=== PATIENT | female | born 1945 | race Caucasian/White ===

== ENCOUNTER → 2024-02-27 | Outpatient (CLI) | payer MEDICARE, SELFPAY ==
[2024-02-27 12:24] LABS: Absolute Lymphocyte Count 1.66 X10^3/uL (0.83-4.51); Basophil# 0.06 X10^3/uL; Basophil% 1.4 % (0-1); Eosinophil# 0.08 X10^3/uL; Eosinophils% 1.9 % (0-5); Hematocrit 42.8 % (37-47); Lymphocyte # 1.66 X10^3/ul (0.83-4.51); Lymphocyte % 39.1 % (19-41); Mean Corp Hgb Conc 32.7 g/dL (32-36); Mean Corpuscular Hgb 29.5 pg (27.0-32.0); Mean Corpuscular Volume 90.1 fL (81-99); Monocyte# 0.42 X10^3/uL; Monocyte% 9.9 % (0-10); NRBC Flagged by Analyzer 0 % (0-5); Neutrophil # 2.02 X10^3/uL (2.7-7.7); Neutrophil % 47.5 % (47-70); Platelet Count 174 K/mm3 (150-450); RBC Distribution Width SD 39.7 fl (35.1-43.9); Red Blood Count 4.75 M/mm3 (4.2-5.4); White Blood Count 4.3 K/mm3 (4.4-11.0)
[2024-02-27 12:46] LABS: BNP,B-Type NATRIURETIC PEPTIDE 46.2 pg/mL (0-100)
[2024-02-27 12:51] LABS: Vitamin D,25 Hydroxy 38.3 ng/mL
[2024-02-27 13:37] LABS: ALB/GLOB Ratio 1.1 RATIO (0.9-2.4); AST(SGOT) 18 U/L (15-37); Alanine Aminotransfer ALT/SGPT 17 U/L (13-56); Albumin, Serum 3.7 g/dL (3.2-5.0); Alkaline Phosphatase 151 U/L (45-117); Anion Gap 6 (5-15); BUN 17 mg/dL (7-18); BUN/Creat Ratio 23.5 RATIO (10-20); Calcium,Total 9.5 mg/dL (8.5-10.1); Chloride 108 mmol/L (98-107); Cholesterol 139 mg/dL (200); Creatinine, Serum 0.72 mg/dL (0.55-1.02); EST Glomerular Filtration Rate 82 mL/min (>60); Est Glom Filt Rate - Afr Amer 99 mL/min (>60); Globulin 3.3 g/dL (2.2-4.2); Glucose 119 mg/dL (74-106); High Density Lipoprotein 67 mg/dL; Potassium 4.1 mmol/L (3.5-5.1); Sodium Level 141 mmol/L (136-145); Triglycerides 77 mg/dL; Very Low Density Lipoprotein 15 mg/dL (5-40)
== END | disposition home or self-care (01) ==
PROVIDERS: PCP Internal Medicine; Referring Provider Internal Medicine; Visit Provider Internal Medicine
DX: I25.10 Atherosclerotic heart disease of native coronary artery without angina pectoris (principal); R06.02 Shortness of breath; E55.9 Vitamin D deficiency, unspecified; I10 Essential (primary) hypertension
CPT/HCPCS: 36415; 80053; 80061; 82306; 83880; 84443; 85025

== ENCOUNTER → 2024-04-16 | Outpatient (CLI) | payer MEDICARE, SELFPAY ==
--- NOTE | 2024-04-16 13:37 | VDLE_ITS ---
Reason For Study: Swelling BLE RIGHT LEFT GSV is normal. GSV is normal. CFV is compressible, spontaneous, phasic, CFV is compressible, spontaneous, phasic, competent and demonstrates normal competent, and demonstrates normal augmentation. augmentation. FV is compressible, spontaneous, phasic, FV is compressible, spontaneous, phasic, competent and demonstrates normal competent and demonstrates normal augmentation. augmentation. POP V is compressible, spontaneous, phasic, POP V is compressible, spontaneous, phasic, competent and demonstrates normal competent and demonstrates normal augmentation. augmentation. T/P Trunk is compressible. T/P Trunk is compressible. PTV is compressible. PTV is compressible. RT PerV is compressible. LT PerV is compressible. Procedure This is a venous duplex using B-mode, color flow and spectral Doppler. Exam performed in department. A preliminary report was called and/or faxed to Dr. Mauricio. VL/Venous Duplex US - Frandy Extrem Interpretation Summary Deep veins of the bilateral lower extremities are patent and compressible segme ntally. There is no evidence of bilateral lower extremity deep vein thrombosis. The bilateral great saphenous veins appear patent and compressible segmentally. Ordering Physician: Cristopher Mauricio Referring Physician: Martha Loyola Performed By: Margarita Crowe, ALOK, RVT
== END | disposition home or self-care (01) ==
PROVIDERS: PCP Internal Medicine; Referring Provider Internal Medicine Cardiovascular Disease; Visit Provider Internal Medicine Cardiovascular Disease
DX: R60.0 Localized edema (principal)
CPT/HCPCS: 93970

== ENCOUNTER → 2024-09-24 | Outpatient (CLI) | payer MEDICARE, SELFPAY ==
[2024-09-24 12:56] LABS: AST(SGOT) 22 U/L (15-37); Alanine Aminotransfer ALT/SGPT 28 U/L (13-56); Albumin, Serum 3.8 g/dL (3.2-5.0); Alkaline Phosphatase 159 U/L (45-117); Bilirubin, Direct 0.24 mg/dL (0.00-0.30); Cholesterol 137 mg/dL (200); Globulin 3.5 g/dL (2.2-4.2); High Density Lipoprotein 70 mg/dL; Protein, Total 7.3 g/dL (6.4-8.2); Triglycerides 90 mg/dL; Very Low Density Lipoprotein 18 mg/dL (5-40)
== END | disposition home or self-care (01) ==
PROVIDERS: PCP Internal Medicine; Referring Provider Physician Assistant Medical; Visit Provider Physician Assistant Medical
DX: E78.2 Mixed hyperlipidemia (principal)
CPT/HCPCS: 36415; 80061; 80076

== ENCOUNTER → 2024-10-19 | Outpatient (CLI) | payer MEDICARE, SELFPAY ==
--- NOTE | 2024-10-19 14:57 | BD_ITS ---
PROCEDURE: DEXA BONE DENSITY STUDY REASON FOR EXAM: F, age 79 y/o . Postmenopausal. TECHNIQUE: DEXA scan of the lumbar spine and both hips. COMPARISON: None. FINDINGS: Lumbar Spine (L1-L4): g/cm2 (0.701)/T-score (-3.6)/Z-score (-0.8) findings are suggestive of osteoporosis with a high fracture risk. Left Femur Total: g/cm2 (0.814)/T-score (-1.1)/Z-score (1.1) Left Femoral Neck: g/cm2 (0.533)/T-score (-2.8)/Z-score (-0.5) Right Femur Total: g/cm2 (0.811)/T-score (-1.1)/Z-score (1.1) Right Femoral Neck: g/cm2 (0.602)/T-score (-2.2)/Z-score (0.2) BD/Dexa Bone Density Study IMPRESSION: The patient is considered osteoporotic as outlined below according to World Hea [employer] Organization (WHO) criteria with a high fracture risk. Reading Location: [facility]
--- NOTE | 2024-10-19 15:30 | BI_ITS ---
PROCEDURE: SCRN MAMM (CAD)W/PADMINI BILAT REASON FOR EXAM: F, Age 79 y/o , presents for annual screening mammogram. Personal history of right breast cancer status post lumpectomy and radiation in 2008 with recurrence 5 years later. TECHNIQUE: Bilateral screening digital breast tomosynthesis with 2D and 3D images. Computer aided detection. COMPARISON: 07/01/2022 FINDINGS: There are scattered areas of fibroglandular density. There is a focal asymmetry in the lower inner right breast at posterior depth. There are postsurgical changes seen in the upper-outer right breast at posterior depth. No suspicious masses, areas of developing architectural distortion, or suspicious calcifications in the left breast. BI/SCRN MAMM (CAD)W/PADMINI BILAT IMPRESSION: There is a focal asymmetry in the lower-inner right breast at posterior depth r equires further evaluation. Recommend diagnostic mammogram and ultrasound of the right breast. BI-RADS 0: INCOMPLETE - NEED ADDITIONAL IMAGING EVALUATION. Follow-up code: Additional Views obtained/call backs The patient will be notified of the results by letter. Reading Location: [id number]
== END | disposition home or self-care (01) ==
LOC: OPBD 14:50
PROVIDERS: PCP Internal Medicine; Referring Provider Internal Medicine; Visit Provider Internal Medicine
DX: Z12.31 Encounter for screening mammogram for malignant neoplasm of breast (principal); Z78.0 Asymptomatic menopausal state
CPT/HCPCS: 77063; 77067; 77080

== ENCOUNTER → 2024-10-26 | Outpatient (CLI) | payer MEDICARE, SELFPAY ==
--- NOTE | 2024-10-26 14:30 | BI_ITS ---
PROCEDURE: DIAG MAMM W/CAD, UNILAT REASON FOR EXAM: ABNORMAL MAMMOGRAM TECHNIQUE: Compression spot views of the right breast in the mediolateral oblique and craniocaudad projections as well as 3D images computer aided detection. COMPARISON: Prior exam(s) dating back to October 19, 2024.. FINDINGS: There are scattered areas of fibroglandular density. Persistent 1.8 cm nodule in the central medial aspect of the right breast. Correlation with ultrasound is recommended. BI/DIAG MAMM W/CAD, UNILAT IMPRESSION: BI-RADS 0: INCOMPLETE - NEED ADDITIONAL IMAGING EVALUATION. Follow-up code: Ultrasound Recommended Reading Location: [place] [address]
--- NOTE | 2024-10-26 15:30 | US_ITS ---
PROCEDURE: BREAST LIMITED UNILATERAL REASON FOR EXAM: ABNORMAL MAMMOGRAM 79-year-old female presents for follow-up of the right breast findings seen on the mammogram of 10/19/2024. Personal history of right breast cancer status post lumpectomy with radiation in 2008 and recurrence 5 years later. TECHNIQUE: Targeted right breast ultrasound. COMPARISON: Same-day right breast diagnostic mammogram and mammograms 05/31/2022, 10/17/2020 FINDINGS: RIGHT: Right breast ultrasound was targeted to the lower-inner quadrant. Ultrasound performed of the right breast demonstrates an irregular hypoechoic mass with posterior shadowing at 5 o'clock 3 cm from the nipple measuring 1.1 x 1.1 x 1.0 cm. There is increased vascularity at the margins of the mass. This finding is an appropriate correlate for the mammographic finding. US/Breast Limited Unilateral IMPRESSION: Irregular right breast mass at 5 o'clock 3 cm from the nipple is suspicious. R ecommend tissue sampling with ultrasound-guided core needle biopsy for further evaluation. BI-RADS 4: SUSPICIOUS ABNORMALITY. Follow-up code: Biopsy Recommended Reading Location: [id number]
== END | disposition home or self-care (01) ==
PROVIDERS: PCP Internal Medicine; Referring Provider Internal Medicine; Visit Provider Internal Medicine
DX: R92.8 Other abnormal and inconclusive findings on diagnostic imaging of breast (principal)
CPT/HCPCS: 76642; 77061; 77065; G0279

== ENCOUNTER → 2024-10-29 | Outpatient (CLI) | payer MEDICARE, SELFPAY ==
--- NOTE | 2024-10-29 09:00 | BREAST_PTH ---
PATIENT: WILLIAM MCCORD LOC: [facility] U#:[id number] AGE/SX: 79/F ROOM: RE10/29/[address]: Dr. Marcy Melton MD : 1945 BED: DIS: 10/29/2024 SPEC #: [id number] RECD: 10/29/24 10:58 STATUS: CHYNA REQ #: [id number] HORTENSIA: 10/29/24 09:[address]: Marcy Melton DEPT: SURGICAL PATHOLOGY RECD BY: Ranjit Wesley ENTERED: 10/29/24 10:59 SP TYPE: BREAST OTHR DR: Dr. 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 * Ki67 proliferative index: 20% Note: The tumor cells are positive for E-cadherin confirming the ductal origin. MICROSCOPIC DESCRIPTION Slides are reviewed. These tests were developed and their performance characteristics determined by [facility]. They may not have been cleared or approved by the U.S. Food and Drug Administration. The FDA has determined that such clearance or approval is not necessary. The above immunohistochemical/dualISH markers are ordered and reviewed by the Pathologist. GROSS DESCRIPTION Received in fixative is one container labeled with the patient's name and designated right breast mass. The specimen consists of multiple cores of red soft tissue measuring in aggregate 1.3 x 0.6 x 0.3 cm. Cold ischemia time is 1 minute. Formalin fixation time is greater than 48 hours. TE1 eh 10/29/24 CPT:[id number] ADDENDUM ADDENDUM ADDENDUM ADDENDUM 11/03/2024 11:13 ADDENDUM 11/03/2024 11:13 ADDENDUM 11/03/2024 11:13 ADDENDUM 11/03/2024 11:13 ADDENDUM 11/03/2024 11:13 ADDENDUM 11/15/2024 08:25 This addendum is to report the tumor grade: Grade 2 (tubule 3, nuclear 2, mitosis 1). This addendum is added to incorporate an outside pathology consultation report. The case was examined at [facility] by Dr. Ballard (#[id number]) and the following diagnosis was rendered. A. Right breast mass at 5:00, 3 cm from nipple: HER2 FISH: Negative HER2 FISH REPORT: HER2 SCORE: NEGATIVE HER2/CEP17 RATIO: 1.0 HER2 COPY NUMBER/CELL: 2.4 Please see complete above mentioned consultation report in EMR
== END | disposition home or self-care (01) ==
LOC: LABSPEC 10:23
PROVIDERS: PCP Internal Medicine; Referring Provider Surgery; Visit Provider Surgery
DX: N63.10 Unspecified lump in the right breast, unspecified quadrant (principal)
CPT/HCPCS: 88305; 88341; 88342

== ENCOUNTER 2024-11-17 12:04 | Day surgery (SDC) | payer MEDICARE, SELFPAY ==
--- NOTE | 2024-11-10 11:03 | PAT.ANESEVAL ---
Pre-Assessment Diagnosis/Proposed Procedure Planned Operative Procedure(s): U/S GUIDED WIRE LOCALIZATION RIGHT LUMPECTOMY WITH SENTINEL LYMPH NODE BX BLUE DYE POSS AXILLARY DISSECTION Anesthesia History Anesthesia History - isotope technologist: Anesthesia History - isotope technologist Hx Hospitalization No 11/09/24 11:21 Any Problems With Anesthesia No 11/09/24 11:21 Cholinesterase deficiency No 11/09/24 11:21 You/Your Family Experience No 11/09/24 11:21 fever (hyperthermia) with Relationship Recent Exposure to Contagious Disease Does patient have nerve No 11/09/24 11:21 stimulator Patient instructed to have device shut off --Does patient have Pacemaker or ICD? When Was Last Pacemaker Check QUESTION #4 FULL TEXT: You/Your Family Experience fever (hyperthermia) with Anesthesia Last Oral Intake Last Oral intake: Last Oral Intake NPO since Meds taken in AM with sips of water? Meds patient instructed to take am of surgery PONV PONV - isotope technologist: PONV - isotope technologist Female Yes 11/09/24 11:21 HX of Motion Sickness Yes 11/09/24 11:21 HX of N/V After Surgery No 11/09/24 11:21 Non-Smoker Yes 11/09/24 11:21 Duration of Surgery greater Yes 11/09/24 11:21 than 60 minutes Number of Risk Factors 4 11/09/24 11:21 PONV Score Severe Risk 11/09/24 11:21 Height & Weight Height & Weight: Anesthesia: Height & Weight Height 5 ft 11/08/24 09:46 Respiratory Assessment Respiratory Assessment - isotope technologist: Respiratory Tract Infection Hx - isotope technologist Hx Respiratory Tract Infection No 11/09/24 11:21 STOP Sleep Apnea STOP Sleep Apnea - isotope technologist: STOP Sleep Apnea - isotope technologist Hx Hypertension Yes: CONTROLLED WITH MED 11/09/24 11:21 Hx Sleep Apnea Yes 11/09/24 11:21 CPAP Yes: NONCOMPLIANT 11/09/24 11:21 BIPAP No 11/09/24 11:21 Do you snore loudly (louder than talking or can be heard Do you often feel tired/ fatigued/ sleepy during daytime? Has anyone observed you stop breathing during sleep? STOP Results Positive 11/09/24 11:21 QUESTION #5 FULL TEXT : Do you snore loudly (louder than talking or can be heard through closed doors)? 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 Specify any problems Hx of Preganancy in last 3 No 11/09/24 11:21 Months Nurse Filling Out Transfusion DSCHRIBER 11/09/24 11:21 & Questions: Date: 11/09/24 11/09/24 11:21 Time: 11:11/09/24 11:21 Patient unable to answer at this time (ie. confused, unrespo /Reproduction History /Reproductive History - isotope technologist: /Reproductive Hx- isotope technologist Hx Now No 11/09/24 11:21 Gestational Age (in weeks): EDC: Hx Hx Para Hx Section SAB No 11/09/24 11:21 [facility] Medical History (Updated 11/09/24 @ 11:37 by Mary Bettencourt) Wears glasses Post-menopausal Anxiety Ambulates with cane Arthritis Bladder disease High cholesterol Back pain History of diverticulitis Gastric reflux Non-smoker CPAP (continuous positive airway pressure) dependence Shortness of breath on exertion History of pain when walking History of edema History of stress test History of echocardiogram Cardiology follow-up encounter Breast cancer Mixed hyperlipidemia CAD (coronary artery disease) Factor V Leiden Chronic back pain Osteoarthritis Glaucoma Hypertension Home Medications ?Medication ?Instructions ?Recorded ?Last Taken ?Type cholecalciferol (vitamin D3) 10 10 mcg PO DAILY 08/19/23 Unknown History mcg (400 unit) capsule amlodipine 5 mg tablet 5 mg PO QDAY 02/24/24 Unknown History [id number]-[id number]- 250 mg-dha 90 1 cap PO DAILY 02/24/24 Unknown History mg-epa 160 xn-xjxd-fcve-zeax capsule (Ocuvite Adult 50 Plus) rosuvastatin 5 mg tablet 5 mg PO QHS 02/24/24 Unknown History dorzolamide 22.3 mg-timolol 6.8 1 drp ophthalmic (eye) BID 04/02/24 Unknown History mg/mL eye drops loratadine 10 mg tablet (Claritin) 10 mg PO DAILY PRN allergy symptoms 04/02/24 Unknown History vibegron 75 mg tablet (Gemtesa) 75 mg PO QDAY 08/31/24 Unknown History alendronate 70 mg tablet (Fosamax) 70 mg PO QWEEK #12 tabs 10/27/24 Unknown Rx aspirin 81 mg tablet,delayed 81 mg PO QDAY 10/29/24 Unknown History release (Adult Aspirin Regimen) omeprazole 40 mg capsule,delayed 40 mg PO DAILY PRN GERD 11/09/24 Unknown History release Allergy/AdvReac Type Severity Reaction Status Date / Time lisinopril Allergy Severe edema Verified 11/09/24 11:17 adhesive tape Allergy rash Verified 11/09/24 11:17 carrot Allergy rash Verified 11/09/24 11:17 green carrington Allergy Vomiting Verified 11/09/24 11:17 atorvastatin AdvReac Severe mylagia Verified 11/09/24 11:17 Family History Brother Alcoholism Daughter Factor V deficiency Mother Arthritis Hypertension Dementia Father Arthritis Heart disease Brother Atrial fibrillation Surgical History (Updated 11/09/24 @ 11:37 by Mary Bettencourt) Hx of colonoscopy Hx of right cataract extraction Hx of left cataract extraction History of lumbar laminectomy History of cardiac catheterization H/O lumpectomy S/P tonsillectomy H/O heart artery stent H/O: hysterectomy Social History adopted: No household members: none 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 Sinus rhythm. First-degree AV block. Left anterior fascicular block. Nonspecific T wave abnormality. Consult pertinent findings: Cardiology 09/24/2024. Hypertension. Controlled on current medications. No adjustments coronary artery disease. Stable. Stress test from 2023. Negative. Recommendation Anesthesia Recommendation Anesthesia recommendation: OPTIMIZED for anesthesia
[2024-11-17] VITALS (9 sets, daily range): BP systolic 138–159; BP diastolic 64–86; PULSE 61–66; RESP 14–18; TEMP 36.4–37.2; O2SAT 93–98; BMI 40.0
--- NOTE | 2024-11-17 12:12 | NM_ITS ---
EXAM: [place] node imaging. CLINICAL HISTORY: Right breast cancer. COMPARISON: None TECHNIQUE: 579 uCi of Lymphoseek injected subdermally 1 cm above the nipple of the right breast. FINDINGS: 579 uCi of Lymphoseek injected subdermally 1 cm above the nipple of the right breast for sentinel node imaging. NM/Lymph Node Injection Only IMPRESSION: Successful injection. [place] node imaging. Reading [facility]
--- NOTE | 2024-11-17 12:33 | PRE.ANES_ITS ---
ASA Classification* ASA Classification ASA Classification: 2 Assessment & Plan Anesthesia* Anesthesia Assessment Anesthesia Assessment: Discussed sedation and/or anesthesia options, risks, benefits, and alternatives with patient/parents/legal guardian/POA. Questions invited. The patient/parents/legal guardian/POA seems to understand and agrees to proceed with anesthesia plan. Reviewed the physical assessment, medical history, allergy history and patient home medications list prior to surgery/procedure/anesthetic and documented any changes. Performed airway and anesthesia risk assessments. Anesthesia Type Anesthesia Type: General Anesthesia Focused Assessment* Airway Assessment Mouth opens: >3 cm Mallampati Score: II Focused Labs Anesthesia Preop lab: CBC WBC 4.3 K/mm3 (4.4-11.0) L 02/27/24 10:47 02/27/24 RBC 4.75 M/mm3 (4.2-5.4) 02/27/24 10:47 02/27/24 Hgb 14.0 g/dL (12.0-15.0) 02/27/24 10:47 02/27/24 Hct 42.8 % (37-47) 02/27/24 10:47 02/27/24 Plt Count 174 K/mm3 (150-450) 02/27/24 10:47 02/27/24 CHEMISTRY Potassium 4.1 mmol/L (3.5-5.1) 02/27/24 10:47 02/27/24 Sodium 141 mmol/L (136-145) 02/27/24 10:47 02/27/24 BUN 17 mg/dL (7-18) 02/27/24 10:47 02/27/24 Creatinine 0.72 mg/dL (0.55-1.02) 02/27/24 10:47 02/27/24 Glucose 119 mg/dL (74-106) H 02/27/24 10:47 02/27/24 TSH 1.90 uIU/mL (0.358-3.74) 02/27/24 10:47 COAG Pre-Assessment Diagnosis/Proposed Procedure Planned Operative Procedure(s): U/S GUIDED WIRE LOCALIZATION RIGHT LUMPECTOMY WITH SENTINEL LYMPH NODE BX BLUE DYE POSS AXILLARY DISSECTION Anesthesia History Anesthesia History - manager financial systems: Anesthesia History - manager financial systems Hx Hospitalization No 03/25/25 11:21 Any Problems With Anesthesia No 11/09/24 11:21 Cholinesterase deficiency No 11/09/24 11:21 You/Your Family Experience No 11/09/24 11:21 fever (hyperthermia) with Relationship Recent Exposure to Contagious Disease Does patient have nerve No 11/09/24 11:21 stimulator Patient instructed to have device shut off --Does patient have Pacemaker or ICD? When Was Last Pacemaker Check QUESTION #4 FULL TEXT: You/Your Family Experience fever (hyperthermia) with Anesthesia Last Oral Intake Last Oral intake: Last Oral Intake NPO since Meds taken in AM with sips of water? Meds patient instructed to take am of surgery PONV PONV - manager financial systems: PONV - manager financial systems Female Yes 11/09/24 11:21 HX of Motion Sickness Yes 11/09/24 11:21 HX of N/V After Surgery No 11/09/24 11:21 Non-Smoker Yes 11/09/24 11:21 Duration of Surgery greater Yes 11/09/24 11:21 than 60 minutes Number of Risk Factors 4 11/09/24 11:21 PONV Score Severe Risk 11/09/24 11:21 Height & Weight Height & Weight: Anesthesia: Height & Weight Height 5 ft 11/08/24 09:46 Respiratory Assessment Respiratory Assessment - manager financial systems: Respiratory Tract Infection Hx - manager financial systems Hx Respiratory Tract Infection No 11/09/24 11:21 STOP Sleep Apnea STOP Sleep Apnea - manager financial systems: STOP Sleep Apnea - manager financial systems Hx Hypertension Yes: CONTROLLED WITH MED 11/09/24 11:21 Hx Sleep Apnea Yes 11/09/24 11:21 CPAP Yes: NONCOMPLIANT 11/09/24 11:21 BIPAP No 11/09/24 11:21 Do you snore loudly (louder than talking or can be heard Do you often feel tired/ fatigued/ sleepy during daytime? Has anyone observed you stop breathing during sleep? STOP Results Positive 11/09/24 11:21 QUESTION #5 FULL TEXT : Do you snore loudly (louder than talking or can be heard through closed doors)? 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 Specify any problems Hx of Preganancy in last 3 No 11/09/24 11:21 Months Nurse Filling Out Transfusion DSCHRIBER 11/09/24 11:21 & Questions: Date: 11/09/24 11/09/24 11:21 Time: 11/09/24 11:21 Patient unable to answer at this time (ie. confused, unrespo /Reproduction History /Reproductive History - manager financial systems: /Reproductive Hx- manager financial systems Hx Now No 11/09/24 11:21 Gestational Age (in weeks): EDC: Hx Hx Para Hx Section SAB No 11/09/24 11:21 Active Medications Active Medications: Current Medications Generic Name Dose Route Start Last Admin Trade Name Freq PRN Reason Stop Dose Admin Cefazolin Sodium 2 gm/ N/A 20 mls @ 400 mls/hr 11/17/24 14:00 IV 11/17/24 14:02 PREOP ONE Sodium Chloride 1,000 mls @ 15 mls/hr 11/17/24 12:15 IV .Q48H MICHEL PFSH Medical History Wears glasses Post-menopausal Anxiety Ambulates with cane Arthritis Bladder disease High cholesterol Back pain History of diverticulitis Gastric reflux Non-smoker CPAP (continuous positive airway pressure) dependence Shortness of breath on exertion History of pain when walking History of edema History of stress test History of echocardiogram Cardiology follow-up encounter Breast cancer Mixed hyperlipidemia CAD (coronary artery disease) Factor V Leiden Chronic back pain Osteoarthritis Glaucoma Hypertension Home Medications ?Medication ?Instructions ?Recorded ?Last Taken ?Type cholecalciferol (vitamin D3) 10 10 mcg PO DAILY Unknown History mcg (400 unit) capsule amlodipine 5 mg tablet 5 mg PO QDAY 02/24/24 Unknow n History rrdlroda-dbu- 250 mg-dha 90 1 cap PO DAILY 02/23 Unknown History mg-epa 160 ro-cnvg-ucun-zeax capsule (Ocuvite Adult 50 Plus) rosuvastatin 5 mg tablet 5 mg PO QHS 02/24/24 Unknown History dorzolamide 22.3 mg-timolol 6.8 1 drp ophthalmic (eye) BID 04/02/24 Unknown History mg/mL eye drops loratadine 10 mg tablet (Claritin) 10 mg PO DAILY PRN allergy symptoms 04/02/24 Unknown History vibegron 75 mg tablet (Gemtesa) 75 mg PO QDAY 08/31/24 Unknown History alendronate 70 mg tablet (Fosamax) 70 mg PO QWEEK #12 tabs 10/27/24 Unknown Rx aspirin 81 mg tablet,delayed 81 mg PO QDAY 10/29/24 Un known History release (Adult Aspirin Regimen) omeprazole 40 mg capsule,delayed 40 mg PO DAILY PRN GE RD #90 caps 11/15/24 Unknown Rx release Allergy/AdvReac Type Severity Reaction Status Date / Time lisinopril Allergy Severe edema Verified 11/09/24 11:17 adhesive tape Allergy rash Verified 11/09/24 11:17 carrot Allergy rash Verified 11/09/24 11:17 green carrington Allergy Vomiting Verified 11/09/24 11:17 atorvastatin AdvReac Severe mylagia Verified 11/09/24 11:17 Family History Brother Alcoholism Daughter Factor V deficiency Mother Arthritis Hypertension Dementia Father Arthritis Heart disease Brother Atrial fibrillation Surgical History Hx of colonoscopy Hx of right cataract extraction Hx of left cataract extraction History of lumbar laminectomy History of cardiac catheterization H/O lumpectomy S/P tonsillectomy H/O heart artery stent H/O: hysterectomy Social History adopted: No household members: none 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
--- NOTE | 2024-11-17 12:36 | HP.PCM_ITS ---
History and Physical Date of Admission: 11/17/24 Date of Service: 11/08/24 MR#: [id number] Acct: [id number] Name: WILLIAM MCCORD Rep #: [id number] : 1945 Provider: Dr. Marcy Melton MD Age/Sex: 79/F Location: [facility] Status: Signed Intake Vital Signs 10/29/2508:08 11/08/2508:46 Height 5 ft 5 ft Weight: 206 lb 5 oz 204 lb BMI 40.3 39.8 BP 134/84 H 151/82 H Blood Pressure Location Lt brachial Rt brachial Position Sitting Sitting Respiration 17 18 Pulse 62 69 Pulse Source Monitor Monitor Temp 97.2 F L Temp Source Temporal Pulse Oximetry (%) 96 97 Oxygen Delivery Method room air room air Intake Visit Reasons: DISCUSS BREAST SURGERY Chief Complaint: discuss breast surgery Is patient in pain?: No Allergies lisinopril Allergy (Severe, Verified 10/29/24 09:10) edemaadhesive tape Allergy (Verified 10/29/24 09:10) rashcarrot Allergy (Verified 10/29/24 09:10) rashgreen carrington Allergy (Verified 10/29/24 09:10) Vomitingatorvastatin Adverse Reaction (Severe, Verified 10/29/24 09:10) mylagia Medications ?Medication ?Instructions ?Recorded ?Confirmed ?Type cholecalciferol (vitamin D3) 10 10 mcg PO DAILY 08/19/23 11/08/24 Histor y mcg (400 unit) capsule amlodipine 5 mg tablet 5 mg PO QDAY 02/24/24 11/08/24 History co soft ophthalmic (eye) 02/24/24 11/08/24 History dtmqusyt-rrs- 250 mg-dha 90 1 cap PO DAILY 02/24/24 11/08/24 History mg-epa 160 cu-asia-fclo-zeax capsule (Ocuvite Adult 50 Plus) rosuvastatin 5 mg tablet 5 mg PO QDAY 02/24/24 11/08/24 History CPAP machine #1 ea 03/15/24 11/08/24 Rx dorzolamide 22.3 mg-timolol 6.8 ophthalmic (eye) 04/02/24 11/08/24 History mg/mL eye drops loratadine 10 mg tablet (Claritin) 10 mg PO DAILY PRN 04/02/24 11/08/24 His tory omeprazole 40 mg capsule,delayed 40 mg PO DAILY #90 caps 08/05/24 5 Rx release vibegron 75 mg tablet (Gemtesa) 75 mg PO QDAY 08/31/24 11/08/24 History alendronate 70 mg tablet (Fosamax) 70 mg PO QWEEK #12 tabs 10/27/24 5 Rx aspirin 81 mg tablet,delayed 81 mg PO QDAY 10/29/24 11/08/24 History release (Adult Aspirin Regimen) Have you fallen in the past year?: No PFSH Medical History Breast cancer Dyspnea on exertion Osteoarthritis Chronic back pain CAD (coronary artery disease) GERD (gastroesophageal reflux disease) ISAURA (obstructive sleep apnea) Mixed hyperlipidemia Essential hypertension IBS (irritable bowel syndrome) Diverticulitis Bladder prolapse GI bleed Factor V Leiden Seasonal allergies Chaney esophagus Hyperlipemia Glaucoma Heart disease Hypertension Surgical History History of cardiac catheterization H/O lumpectomy S/P tonsillectomy H/O heart artery stent Cataract extraction status Previous back surgery H/O: hysterectomy Family History Brother AlcoholismDaughter Factor V deficiencyMother Arthritis Hypertension DementiaFather Arthritis Heart diseaseBrother Atrial fibrillation Social History adopted: No household members: none 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 occupational 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 To discuss surgical treatment. Patient previously had lumpectomies x 2 on the right did not have any radiation and only took antihormone pill for about 3 months due to nausea. ROS General General: Yes fatigue and breast cancer; No weight change, appetite, colon cancer or weakness HEENT HEENT: Yes eye surgery; No difficulty swallowing, eye injury, swollen glands or hoarseness Endo Endocrine: No thyroid disease, diabetes mellitus, thyroid cancer, Hair loss, heat intolerance or cold intolerance Skin Skin: Yes rash; No changing moles Breast Breast: Yes right breast lump, abnormal mammogram and abnormal US; No left breast lump, nipple discharge, breast pain or breast enlargement Musc Musculoskeletal: Yes back problems and arthritis; No rheumatoid arthritis, gout or joint pain Cardio Cardiovascular: Yes heart disease, high blood pressure and heart stent; No murmur, pacemaker, atrial fibrillation, heart attack, palpitations, shortness of breath with exertion or chest pain Psych Psychiatric: No depression, anxiety or hearing voices Resp Respiratory: Yes shortness of breath, Yes sleep apnea, Yes cough, No COPD, No asthma, No emphysema and No wheezing Gastro Gastrointestinal: Yes abdominal pain, No nausea or vomiting, No diarrhea, No constipation, No blood in stool, Yes acid reflux, No hemorrhoids, No ulcers, No gallbladder problem and No black,tarry stools Cm Hematologic: Yes blood thinners, Yes blood disorders, No bleeding, No anemia and No blood clots Additional Details: factor V leiden Neuro Neurologic: No numbness, No tingling Exam Const General: cooperative, healthy appearing and no acute distress [facility] Head: normal to inspection Chest Other: Breast inspection: Right breast slightly smaller than left, well-healed areolar incision Right breast: Biopsy site well-healed, mass at 5-6 o'clock abt 1.5 cm Resp Effort & Inspection: normal respiratory effort Cardio Rate: regular rate GI Inspection: non-distended Palpation: soft Skin General: no rashes or lesions noted Neuro General: patient oriented x3 Extrem General: no clubbing, cyanosis or edema Psych Affect: normal affect Assessment and Plan Assessment and Plan (1) Invasive ductal carcinoma of right breast: Status: Acute (2) History of ductal carcinoma in situ (DCIS) of right breast: Status: Acute Comment: s/p lumpectomies last in 2012, no radiation per pt, stopped antihormone pill after 3 months due to nausea Orders: Orders Lymph Node Injection Only 11/17/24 N63.10 - Unspecified lump in the right breast, unspecified quadrant, Z86.000 - Personal history of in-situ neoplasm of breast Plan I have given the patient options for initial surgical treatment. Options are the following: lumpectomy followed by radiation therapy vs. mastectomy vs. mastectomy followed by immediate reconstruction. I have described the procedures to the patient. I have described the advantages and disadvantages of the options, but I have told the patient that among the options, the survival rate for breast cancer is the same. Patient is currently not interested in mastectomy or reconstruction. And would be agreeable to radiation is aware that the number of sessions depends on final diagnosis and pathology grade and does take in account patient's age as well. I have told the patient that with all the surgeries that a sentinel lymph node biopsy is required. I have described the procedure of sentinel lymph node biopsy to the patient. I have told the patient that if the biopsy is positive for metastatic disease, then a full axillary lymph node dissection is required. I have told the patient that adjuvant chemotherapy will be required should the lymph nodes reveal metastatic disease. Also, a full lymph node dissection will increase the risk for lymphedema, especially if there are 4 or more lymph nodes positive for metastatic disease and radiation to the axilla is also required. Discussed with patient that likely due to her age I would not proceed with a full axillary lymph node dissection as she would not get the benefit. I have told the patient the risks of surgery, including but not limited to: infection, bleeding, scar tissue, seroma and persistent seroma, lymph leak, injury to any blood vessels, injury to any nerves (particularly the long thoracic, the thoracodorsal, and the second intercostal brachial and the resultant sequelae), lymphedema, cosmetic deformity, dysesthesias, wound infections, further surgery (especially if margins are not clear), complications of anesthesia, etc. the patient understands. Patient is agreeable to ultrasound-guided wire localization right lumpectomy, sentinel lymph node biopsy with Lymphoseek and blue dye. I have answered all the patient?s questions at this point to her satisfaction and she has no further questions. Marcy Melton M.D. Pager: [phone] [facility] [address] [place] [address], [address] [place] [address] Office: [phone] Coding Level of Care Code Off vis,est,level 4 Diagnoses Invasive ductal carcinoma of right breast C50.911 History of ductal carcinoma in situ (DCIS) of right breast Z86.000 Clinical Quality Measures Falls Risk Screening/Assistive Devices Have you fallen in the past year?: No 11/09/24 0912 <Electronically signed by Marcy Melton MD> Date Marcy Melton MD
[2024-11-17] MEDS: 0.9% Normal Saline (1000mL) 1,000 ML 15 ML IV (12:37)
[2024-11-17] MEDS: Cefazolin 2 GM in Syringe IV (13:51)
[2024-11-17] MEDS: 0.9% Normal Saline (Pres. free 10 ML Vial (14:00)
[2024-11-17] MEDS: Isosulfan Blue 1% 5 ML Vial (14:00)
--- NOTE | 2024-11-17 14:00 | LYMN_PTH ---
PATIENT: WILLIAM MCCORD LOC: [facility] U#:[id number] AGE/SX: 79/F ROOM: RE11/17/[address]: Dr. Marcy Melton MD : 1945 BED: DIS: 11/17/2024 SPEC #: [id number] RECD: 11/17/24 15:47 STATUS: CHYNA REFaina #: [id number] HORTENSIA: 11/17/24 14:[address]: Marcy Melton DEPT: SURGICAL PATHOLOGY RECD BY: Ranjit Wesley ENTERED: 11/17/24 15:47 SP TYPE: LYMPH NODE OTHR DR: Dr. Martha Loyola MD Tissues: A - LYMPH NODE BIOPSY Procedures: Frozen Section (charge) Immunohistochemical Stains Frozen Section Add'l ([facility]) Surgery Specimen Level IV IHC Stain ADDITIONAL HEADER OPERATION: Right breast lumpectomy, sentinel lymph node PRE-OP DIAGNOSIS: Invasive ductal carcinoma of right breast, history of ductal carcinoma in situ of right breast TISSUE SUBMITTED: A- Colton lymph node - right breast, B- Right breast mass *long stitch-lateral, short stitch-superior*, C- [place] lymph node - right breast #2, D- Colton lymph node - right breast #3 FROZEN SECTION DIAGNOSIS A. Right breast sentinel lymph node, biopsy: Fibrofatty tissue. No lymphoid tissue seen. B. Right breast mass, biopsy: Margins appear clear grossly. Closest margin is superior, approximately 2 cm. C. Right breast sentinel lymph node, biopsy: No metastasis seen. D. Right breast sentinel lymph node, biopsy: No metastasis seen. 11/17/2024 MICROSCOPIC DIAGNOSIS A. Right Axilla, Colton Lymph Node, Biopsy: - Fibroadipose tissue. B. Right Breast, Mass, Lumpectomy: - Invasive ductal carcinoma, margins narrowly free - see Synoptic Report/Comments. Grade 2 (tubule 3, nuclear 2, mitosis 1), pT1c pN0 Less than 1 mm to posterior margin 2 mm to inferior margin - DCIS, extensive, margins narrowly free Intermediate nuclear grade with focal necrosis Less than 1 mm to anterior margin with span of 7 mm. C. Right Axilla, Colton Lymph Node, Biopsy: - Negative for metastasis (0/1). D. Right Axilla, Colton Lymph Node, Biopsy: - Negative for metastasis (0/2). COMMENT SYNOPTIC REPORT FOR INVASIVE BREAST CARCINOMA Specimen (P=partial, M=mastectomy): P Laterality (R=right, L=left): R Focality (U=unifocal, M=multifocal): U Tumor size (cm): 1.8 Histologic type: invasive ductal carcinoma Histologic grade: 2 ??? Tubule score (1-3): 3 ??? Nuclear score (1-3): 2 ??? Mitotic score (1-3): 1 Skin, nipple epidermis, skeletal muscle (I=involved, N=negative, NA=not applicable): NA Lymphovascular invasion (E=extensive, F=focal, N=not identified): N Margins of main specimen (P=positive, N=negative): N Distance to closest margin of main specimen (mm): <1 mm Designation of closest margin of main specimen: posterior Designation of other margins of main specimen </=1 mm: NA Re-resection margin status (P=positive, N=negative, NA=not applicable): NA DCIS (P=present, N=not identified): P ?? Nuclear grade: intermediate ?? Comedo necrosis (P=present, N=not identified): N (focal non-comedo necrosis noted) ?? Extensive intraductal component (P=present, N=not identified): P ?? Margins of main specimen (P=positive, N=negative): N ?? Distance to closest margin of main specimen (mm): <1 mm ?? Designation of closest margin of main specimen: anterior ?? Designation of other margins of main specimen </=2 mm: NA ?? Longest span </= 2 mm to margin of main specimen (mm): 7 mm ?? Re-resection margin status (P=positive, N=negative, NA=not applicable): NA Regional lymph nodes: ?? Total number of lymph nodes: 3 ?? Number of sentinel lymph nodes: 3 ?? Number with macrometastases: 0 ?? Number with micrometastases: 0 ?? Number with isolated tumor cells: 0 ?? Size of largest sara metastasis (mm): NA ?? Size of extranodal extension (mm) (N=not identified): NA Estrogen receptor: positive (95%, strong intensity) Progesterone receptor: positive (60%, strong intensity) HER2 IHC: equivocal (2+) HER2 FISH: negative (performed at [facility]) Specimen in which ER/WV/HER2 performed: [id number] pTNM: pT1c pN0 Additional findings: microcalcifications, fibrocystic mastopathy IHCs utilized in the assessment: E-cadherin (B2,3,4,6) CK5/6 (B2,3,4,) Pancytokeratin (C1, D1,2) Comment: A preliminary diagnosis was provided to Dr Angelito Melton 11/24/2024. Microscopic foci of invasive and intraductal tumor extend closer to the surgical margins than could be appreciated grossly at the time of surgery. The above synoptic report complies, in slightly modified form, with the guidelines of the [employer] and the Association of Directors of Anatomic and Surgical Pathology for the reporting of cancer specimens MICROSCOPIC DESCRIPTION Slides are reviewed. These tests were developed and their performance characteristics determined by [facility]. They may not have been cleared or approved by the U.S. Food and Drug Administration. The FDA has determined that such clearance or approval is not necessary. The above immunohistochemical/dualISH markers are ordered and reviewed by the Pathologist. GROSS DESCRIPTION A. Received fresh for intraoperative consultation in a container labeled with the patient's name, date of , and right breast sentinel lymph node is a 2.4 x 2.0 x 1.1 cm fragment of previously dyed blue rascon-yellow fatty tissue. Sectioning reveals 2 ill-defined rascon-pink and tinged blue lymph node candidates measuring approximately 0.3 x 0.3 x 0.3 cm and 0.2 x 0.2 x 0.1 cm. Each are submitted for frozen section analysis in A1-A2. The fat is retained. The remaining remnants are submitted entirely for permanent section analysis as follows:A1. Frozen section remnantA2. Frozen section remnantA3. Remainder of fatty tissue B. Received fresh for intraoperative consultation in a container labeled with the patient's name, date of , and right breast mass is an oriented, 18.8 g lumpectomy specimen with a long stitch indicating lateral margin and short stitch indicating superior margin. The specimen is 5.5 cm from medial to lateral, 3.7 cm from superior to inferior, and 2.5 cm from anterior to posterior. A metal localization wire is protruding from the lateral margin. Ink vera:Npyxnpzu-rabhKvfymrxf-tbtzbFswssx-uqtEgigwrv-gzfgzeWcscfria-bjsxauIahsjlsji-black The specimen is serially sectioned from lateral to medial into 7 slices to reveal a white-rascon, firm, and spiculated mass within slices 2-5. A spiral metal biopsy clip is identified within the mass in slice 4.Mass measurement: 1.8 x 1.5 x 1.0 cm. It is situated to the margins as follows:Superior: 0.2 cmInferior: 0.4 cmAnterior: 0.5 cmLateral: 0.6 cmPosterior: 0.7 cmMedial: 0.9 cm The remaining cut surfaces are comprised of approximately 90% rascon-yellow adipose tissue and 10% dense fibrous tissue. No other mass lesions are identified. Climatologist sections:B1. Slice 1, perpendicular sections of lateral margin (adjacent to mass)B2. Slice 2, mass to anterior marginB3. Slice 3, mass to closest superior, anterior, and posterior marginsB4. Slice 3, mass to closest inferior and posterior marginsB5. Slice 4, mass to superior, anterior, and posterior marginsB6. Slice 5, mass with adjacent fibrous area to anterior and posterior marginsB7. Slice 6, superior/medial margin adjacent to mass with slice 7, perpendicular sections of medial margin Total formalin fixation time: Between 6 and 72 hours. C. Received fresh for intraoperative consultation in a container labeled with the patient's name, date of , and right breast sentinel lymph node is a 2.5 x 2.2 x 1.4 cm fragment of rascon-yellow fatty tissue. Serial sections reveal a rascon-pink strip, possibly consistent with lymph node measuring 1.2 x 0.2 x 0.2 cm. The possible node is submitted entirely for frozen section analysis, the fat is retained. The remaining frozen section remnants are submitted entirely for permanent section in C1. D. Received fresh for intraoperative consultation in a container labeled with the patient's name, date of , and right breast sentinel lymph node is a 2.0 x 1.5 x 1.3 cm fragment of rascon-yellow fatty tissue. Serial sections reveal a 0.5 x 0.2 x 0.2 cm strip, possibly consistent with lymph node with a separate, 0.4 x 0.2 x 0.2 cm ill-defined rascon-pink possible lymph node. Each are submitted entirely for frozen section analysis in D1-D2. The fat is retained. The remaining frozen section remnants are submitted entirely for permanent section in D1-2. [facility] 11-18-2024 CPT:[id number]
--- NOTE | 2024-11-17 15:04 | BI_ITS ---
PROCEDURE: BREAST BIOPSY SPECIMEN 11/17/2024 REASON FOR EXAM: Evaluation of the surgical specimen. TECHNIQUE: Evaluation of a suspicious lesion identified on mammography (BI-RADS 4). COMPARISON: Prior exam(s) dated October 26, 2024. FINDINGS: The metallic clip is identified on the surgical specimen image. BI/Breast Biopsy Specimen IMPRESSION: The specimen contains the localization wire and clip. Reading Location: [facility]-
--- NOTE | 2024-11-17 15:54 | PCM.OPRPT ---
Oncology: Briseida Requirements . Oncology surgical intervention performed: [place] Node Biopsy for Breast Cancer performed Hamburg Node Bx - Breast Cancer: Synoptic Portion: Element Response Options Operation performed with curative intent. Initially but did not proceed with axillary lymph node dissection when tracers did not trace due to previous lumpectomies--- as age > 75 Tracer(s) used to identify sentinel nodes in the upfront surgery (non-neoadjuvant) setting (select all that apply). Dye; Radioactive tracer Tracer(s) used to identify sentinel nodes in the neoadjuvant setting (select all that apply).N/A. All nodes (colored or non-colored) present at the end of a dye-filled lymphatic channel were removed. No did not trace due to previous right upper quadrant lumpectomies All significantly radioactive nodes were removed. No (did not trace) All palpably suspicious nodes were removed. N/A. Biopsy-proven positive nodes marked with clips prior to chemotherapy were identified and removed. N/A Operative Report (Standard) Operative Information Date of Procedure: 11/17/24 Pre-Operative Diagnosis: Right breast cancer Post-Operative Diagnosis: Same Surgery/Procedure Performed: Ultrasound-guided wire localization right lumpectomy, sentinel lymph node biopsy with Lymphoseek and blue dye incubator machine operator: Yes Sprayer Insecticide: Floridalma Ramos Tasks completed by carpenter assistant installer: Opening & closing Type of Anesthesia: General/Supplemental RN Documented Start/Stop Times: Operation Date: 11/17/24 14:00 Case Time Into Pre-Op 11/17/24 12:14 Anesthesia Start 11/17/24 13:44 Into Room 11/17/24 13:44 Out of Pre-Op 11/17/24 13:44 Procedure Start 11/17/24 14:11 Procedure End 11/17/24 16:10 Anesthesia End 11/17/24 16:14 Out of Room 11/17/24 16:14 Into Recovery 11/17/24 16:18 Out of Recovery 11/17/24 17:10 Into Phase II Recovery 11/17/24 17:11 Out of Phase II 11/17/24 18:55 Procedure Start Time: 14:11 Procedure Stop Time: 16:10 Select all DRAINS/GRAFTS/IMPLANTS that apply: None Special Medications: Ancef 2 g IV x 1 Estimated Blood Loss: 15 cc Specimen collected: Yes Description of specimen(s) removed: 1. Hamburg lymph node, 2. Right lumpectomy, 3. [place] lymph node #2 Description of surgery: In the breast tissue was injected with Lymphoseek. 30 minutes later the patient was taken to the operating room and general anesthesia was induced. 5 cc of Lymphazurin 1% blue dye was injected in the 4 quadrants periareolar along with 10 cc of normal saline. This was massaged gently for 5 minutes. The right breast and axilla were prepped and draped in usual sterile fashion. A timeout was completed verifying correct patient, procedure, site, positioning, special equipment prior to beginning procedure. Handheld gamma probe was used to identify the location of the hottest spot in the axilla. Prior to the incision, the counts were 19. On entry into the axilla there is noted to be extravasation of blue dye due to patient's previous lumpectomies in the upper outer quadrant. The axillary cavity was explored no palpable abnormal nodes found. Did discuss with daughter and decided to not proceed with that Lymph node dissection. Frozen had 1 negative lymph node. Ultrasound was use for localization of the breast mass using the Kopan's needle. The wire was placed just inferiorly to the mass. A radial incision was planned in such a way as to minimize the amount of dissection to reach the mass. Flaps were raised in the location of the wire confirmed. The wire was delivered into the wound. 2 silk yqyzzf-me-ddkle stay suture was placed around the wire and used for traction. Dissection was then taken down circumferentially, taking care to include the entire localization needle and wide margin of grossly normal tissue. The specimen and entire localizing wire were removed. The specimen was oriented and sent to radiology with the localization studies. Confirmation was received that the entire target lesion had been resected. 3 medium clips were placed in the line at the deep area of the cavity. The cavities were irrigated. Hemostasis was checked. The breast and axillary incisions were closed with interrupted sutures of 3-0 Vicryl and subcuticular sutures of 4-0 Monocryl. No attempt was made to close the space. Dermabond and supportive bra placed. The patient tolerated procedure well was taken to the postanesthesia care in stable condition Surgical Findings: 1 right axillary lymph node negative on frozen Complications Complications: No
[2024-11-17] MEDS: Bupivacaine 0.25% 30 ML Vial (16:00)
--- NOTE | 2024-11-17 16:01 | EX.PCM.DISCH ---
Discharge Instructions Diet Discharge Diet: No restrictions Activity Discharge Activity: May Not Drive (for 2-3 days or while taking narcotic pain meds.) May shower in (days): 1 Lifting Restrictions: 10 pounds for 1 week. Dressing / Incision Call your doctor if your incision/area has: Continuous Slow Oozing, Sudden Increased Bleeding, Increased Pain/ Swelling and Increased Redness Call your doctor if you observe: Fever of 101 or Higher Suture Line Care: Avoid Pulling/Pushing and Avoid Pinching/Bending Remove Dressing in: 1 day Additional Dressing/Incision Instructions:: Remove bulky dressing tomorrow. May leave op-site dressing for 3-4 days. Dermabond (glue) was used at the axillary incision this may start to peel off in about 5 days. Okay to remove Steri-Strips from the breast incision in 7 to 10 days. Follow Up Care Please Follow Up With: Marcy Melton MD When: Please call [phone] for an appointment to be seen in 2 week. Test Results: Test results from this visit will be discussed in further detail at your follow-up appointment, if applicable. Discharge Plan Admission Attending Provider: Marcy Melton Primary Care Provider: Martha Loyola Instructions Print Language: Luxembourgish Discharge Orders/Prescriptions Prescriptions: New tramadol 50 mg tablet 50 mg PO Q6H PRN (Reason: pain) 3 Days Qty: 5 0RF Continued cholecalciferol (vitamin D3) 10 mcg (400 unit) capsule 10 mcg PO DAILY rosuvastatin 5 mg tablet 5 mg PO QHS amlodipine 5 mg tablet 5 mg PO QDAY Ocuvite Adult 50 Plus 250 mg (90 mg-160 mg) capsule 1 cap PO DAILY loratadine [Claritin] 10 mg tablet 10 mg PO DAILY PRN (Reason: allergy symptoms) Gemtesa 75 mg tablet 75 mg PO QDAY dorzolamide-timolol 22.3-6.8 mg/mL drops 1 drp ophthalmic (eye) BID Patient Comments: [NO ORIGINAL SIG] omeprazole 40 mg capsule,delayed release(DR/EC) 40 mg PO DAILY alendronate [Fosamax] 70 mg tablet 70 mg PO QWEEK Qty: 12 0RF Held aspirin [Adult Aspirin Regimen] 81 mg tablet,delayed release (DR/EC) 81 mg PO QDAY Hold Instructions: Resume on 11/22/24. Referrals / Follow Up: Martha Loyola MD [Primary Care Provider] - Disposition Disposition (needs filled in before D/C Order can be placed): Home, Self Care
--- NOTE | 2024-11-17 16:20 | PCM.POST.ANE ---
Anesthesia: Postop Eval I Current Vital Signs Temperature: 98.3 F Pulse Rate: 66 Blood Pressure: 151/85 Respiratory Rate: 16 Pulse Ox: 95 Oxygen Delivery Method: Room Air Assessment Airway patent: Yes Spontaneous unlabored respirations: Yes Mental status: Awake and Calm nausea: No Vomiting: No Anesthesia Complication: No Fluid Hydration Crystalloid volume administer (ml): 1,000 Total IV fluid infused: 1,000 Progress Note Anesthesia document: Postop Eval 1 completed: Yes
[2024-11-17] MEDS: traMADol 50 MG Tablet PO (17:26)
[2024-11-17] MEDS: Acetaminophen 325 MG Tablet 650 MG PO (17:26)
--- NOTE | 2024-11-17 17:48 | POSTOPAN2_ITS ---
Anesthesia Postop Eval I Sum Postop Eval Completion status Anesthesia document: Postop Eval 1 completed: Yes Anesthesia Postop Eval I Summary Anesthesia Postop Eval I Summary: Anesthesia Postop Eval I: Assessment Summary Airway patent Yes 11/17/24 16:21 [email or web address] Spontaneous unlabored Yes 11/17/24 16:21 PROOF [email or web address].[email or web address] respirations Mental status Awake,Calm 11/17/24 16:21 PROOF [email or web address].[email or web address] nausea No 11/17/24 16:21 PROOF SORTER.[email or web address] Vomiting No 11/17/24 16:21 PROOF [email or web address].[email or web address] Anesthesia Postop Eval I: Fluid Summary Crystalloid volume administer 1,000 11/17/24 16:21 [email or web address] [email or web address] (ml) Colloids volume administered ( ml) Blood Product volume administered (ml) Total IV fluid infused 1,000 11/17/24 16:21 PROOF [email or web address].[email or web address] Anesthesia Postop Eval I: Summary Notes Anesthesia Complication No 11/17/24 16:21 PROOF [email or web address].[email or web address] Anesthesia Complication Comment: Post-operative progress note Anesthesia: Postop Eval II Evaluation Mental status: Awake Pain Level: 0 nausea: No Vomiting: No
--- NOTE | 2024-11-17 17:48 | PCM.POSTANE2 ---
Anesthesia Postop Eval I Sum Postop Eval Completion status Anesthesia document: Postop Eval 1 completed: Yes Anesthesia Postop Eval I Summary Anesthesia Postop Eval I Summary: Anesthesia Postop Eval I: Assessment Summary Airway patent Yes 11/17/24 16:21 [employer]LEGE [email or web address].[email or web address] Spontaneous unlabored Yes 11/17/24 16:21 COLLEGE SPECIALIST.[email or web address] respirations Mental status Awake,Calm 11/17/24 16:21 COLLEGE SPECIALIST.AGATHAOBGinny nausea No 11/17/24 16:21 COLLEGE SPECIALIST.[email or web address] Vomiting No 11/17/24 16:21 COLLEGE SPECIALIST.[email or web address] Anesthesia Postop Eval I: Fluid Summary Crystalloid volume administer 1,000 11/17/24 16:21 COLLEGE [email or web address].[email or web address] (ml) Colloids volume administered ( ml) Blood Product volume administered (ml) Total IV fluid infused 1,000 11/17/24 16:21 COLLEGE SPECIALIST.SHERRIE Anesthesia Postop Eval I: Summary Notes Anesthesia Complication No 11/17/24 16:21 COLLEGE SPECIALIST.[email or web address] Anesthesia Complication Comment: Post-operative progress note Anesthesia: Postop Eval II Evaluation Mental status: Awake Pain Level: 0 nausea: No Vomiting: No
== END 2024-11-17 18:55 | disposition home or self-care (01) ==
LOC: SDC 12:11 → AC 12:12
PROVIDERS: PCP Internal Medicine; Referring Provider Surgery; Visit Provider Surgery
PROC: 0HBV0ZZ Excision of Bilateral Breast, Open Approach (ICD-10-PCS; CPT 19302; principal; 2024-11-17 13:45)
DX: C50.911 Malignant neoplasm of unspecified site of right female breast (principal); E78.2 Mixed hyperlipidemia; I10 Essential (primary) hypertension; I25.10 Atherosclerotic heart disease of native coronary artery without angina pectoris; Z17.0 Estrogen receptor positive status [ER+]; K21.9 Gastro-esophageal reflux disease without esophagitis; Z86.000 Personal history of in-situ neoplasm of breast; Z95.5 Presence of coronary angioplasty implant and graft
CPT/HCPCS: 19301; 38900; 00400; 38792; 76098; 88305; 88331; 88332; 88341; 88342; A4648; A9520; J2405; Q9968